=== PATIENT | male | born 1980 | race Caucasian/White ===

== ENCOUNTER 2020-07-13 07:54 | Emergency (ER) | payer BC ==
[2020-07-13] MEDS ORDERED: MANNITOL 20% 500 ML IV SCH (09:00)
--- NOTE | 2020-07-13 09:04 | RAD REPORT ---
EXAM DESCRIPTION: CT - Head Brain Wo Cont - 07/13/2020 8:55 am CLINICAL HISTORY: HEADACHE COMPARISON: No comparisons TECHNIQUE: Axial 5 mm thick images of the head were obtained without IV contrast. All CT scans are performed using dose optimization technique as appropriate and may include automated exposure control or mA/KV adjustment according to patient size. FINDINGS: No intracranial hemorrhage, mass, edema or shift of mid-line structures. No acute infarcti on changes seen. No abnormal extra-axial fluid collections. Ventricles are normal. Mastoid air cells and visualized portions of the paranasal sinuses are clear. No acute bony findings. IMPRESSION: Negative non-contrast CT head examination.
[2020-07-13] MEDS ORDERED: PILOCARPINE 1% OPTH DROPS 15 ML BTL OPTH ONE (09:15)
[2020-07-13] MEDS ORDERED: DORZOLAMIDE 2% OPTH (10 ML) OPTH ONE (09:15)
[2020-07-13] MEDS ORDERED: TIMOLOL MALEATE 0.5% OPTH 5 ML BTL OPTH ONE (09:15)
--- NOTE | 2020-07-13 09:21 | ER ---
Nurse's Notes [facility] Name: Salvatore Izaguirre Age: 40 yrs Sex: Male : 1980 Arrival Date: 07/13/2020 Time: 07:58 Bed 20 Private MD: Blas Gomez R Diagnosis: Acute angle-closure glaucoma, left eye Presentation: 07/13 08:22 Chief complaint: Patient states: L eye pain that began 1.5 weeks ago. Redness began ss yesterday. Also c/o headache that began yesterday. Coronavirus screen: Client denies travel out of the [place] in the last 14 days. Ebola Screen: Patient denies exposure to infectious person. Patient denies travel to an Ebola-affected area in the 21 days before illness onset. Mechanism of Injury: No Mechanism of Injury. The patient denies any loss of vision. Initial Sepsis Screen: Does the patient meet any 2 criteria? No. Patient's initial sepsis screen is negative. Does the patient have a suspected source of infection? No. Patient's initial sepsis screen is negative. Risk Assessment: Do you want to hurt yourself or someone else? Patient reports no desire to harm self or others. Onset of symptoms was July 12, 2020. 08:22 Method Of Arrival: Ambulatory ss 08:22 Acuity: IVIS 2 dm5 Historical: - Allergies: 08:25 IV contrast; ss - Home Meds: 08:25 None [Active]; ss - PMHx: 08:25 borderline HTN; Arthritis; ss - PSHx: 08:25 back surgery; ss - Immunization history:: Adult Immunizations up to date. - Social history:: Smoking status: Patient denies any tobacco usage or history of. Patient/guardian denies using alcohol, street drugs, The patient lives with family. - Family history:: not pertinent. Screenin:01 Abuse screen: Denies threats or abuse. Nutritional screening: No deficits noted. ll1 Tuberculosis screening: No symptoms or risk factors identified. Fall Risk Secondary diagnosis (15 points) impaired vision. IV access (20 points). Ambulatory Aid- Crutches/Cane/Walker (15 pts). Gait- Impaired (20 pts.). Total Tovar Fall Scale indicates High Risk Score (45 or more points). Fall prevention measures have been instituted. Side Rails Up X 2 Frequent Obs/Assessments Occuring As available patient and family educated on Fall Prevention Program and Strategies. Vital Signs: 08:15 BP 153 / 94; Pulse 82; Resp 16; Temp 98.3(O); Pulse Ox 99% on R/A; Weight 104.33 kg; 3 Height 5 ft. 10 in. (177.80 cm); Pain 9/10; 09:30 BP 142 / 93; Pulse 65; ss 09:38 Pain 5/10; ss 10:01 BP 142 / 82; Pulse 63; Resp 16; Pulse Ox 98% on R/A; ll1 08:15 Body Mass Index 33.00 (104.33 kg, 177.80 cm) [facility] ED Course: 07:58 Patient arrived in ED. mr 07:58 Blas Gomez MD is Private Physician. mr 08:10 Ricky Jaimes MD is Attending Physician. [facility] 08:21 Rachel Tee, DIXON is Primary Nurse. 08:23 Triage completed. 08:25 Arm band placed on right wrist. 08:59 initiated a transfer with BRIEN Trejo from the [facility]. 09:00 Inserted saline lock: 18 gauge in right antecubital area, using aseptic technique. [facility] 09:[address] Salvatore Colón the auth specialist retail and promotions coordinator for [facility] with Dr. andi Jaimes for patient transfer consultation. 09:[address] Hou the emergency room doctor retail and promotions coordinator for [facility] with Dr. andi Jaimes for patient transfer consultation. 09:26 administrative approval given by BRIEN Trejo / patient has been accepted to [facility] ER/ Dr. Ann Marie Hou has accepted the patient in transfer/ report to be called through the transfer center at [phone]. 10:01 Patient has correct armband on for positive identification. Bed in low position. Call ll1 light in reach. Side rails up X 1. Pulse ox on. NIBP on. 10:25 No provider procedures requiring assistance completed. Patient transferred, IV remains ss in place. Administered Medications: 09:12 Drug: acetaZOLAMIDE 250 mg Route: PO; ss 10:14 Follow up: Response: No adverse reaction 09:24 Drug: TORadol 30 mg Route: IVP; Site: right antecubital; ss 10:14 Follow up: Response: No adverse reaction; RASS: Alert and Calm (0) ss 09:26 Drug: Mannitol 25% 1 g/kg Route: IV; Rate: calculated rate; Site: right antecubital; ss 10:14 Follow up: Response: No adverse reaction; IV Status: Completed infusion ss 09:30 Not Given (Physician Discretion): Pilocarpine Drops (2 %) 1 drops Ophthalmic once ss 09:33 Drug: Timolol 0.25 % 1 drops Route: Ophthalmic; Site: left eye; ma2 10:14 Follow up: Response: No adverse reaction ss 09:33 Drug: Dorzolamide 2 % 1 drops Route: Ophthalmic; Site: left eye; ma2 10:15 Follow up: Response: No adverse reaction ss Outcome: 09:21 ER care complete, transfer ordered by . ma2 10:25 Patient left the ED. eb 10:25 Transferred by ground EMS to [facility]. 10:25 Condition: good 10:25 Instructed on the need for transfer. Addendum: 07/14/2020 08:22 Addendum: Other Pt is awake, alert and obeys commands. Respirations are even and s s unlabored. Denies fever, feeling ill, fatigue and/or chills. Pt c/o L sided headache that began this morning. L eye irritation that began 2 weeks ago, but became worse this morning. L sclera appears reddened. Pt reports that he noticed his L pupil was non reactive this morning. L pupil is in fact non reactive. Pt reports that his vision is hazy in L eye. Denies dizzines. Abd assessment is within normal limits. Denies N/V/D. Signatures: Medina eBnjamin RN RN dm5 Trinity Mireles Shelby, RN RN Eli Cervantes 3 Ricky Jaimes MD MD ma2 Jessica Dash Lynsay, RN RN ll1 Corrections: (The following items were deleted from the chart) 07/13 08:54 08:22 Acuity: IVIS 3 ss dm5
--- NOTE | 2020-07-13 09:21 | EDPHYS ---
Physician Documentation [facility] Name: Salvatore Izaguirre Age: 40 yrs Sex: Male : 1980 Arrival Date: 07/13/2020 Time: 07:58 Bed 20 Private MD: Blas Gomez R ED Physician Ricky Jaimes HPI: 07/13 09:02 This 40 yrs old Male presents to ER via Ambulatory with complaints of Redness ma2 of Eye, Eye Pain. 09:02 This 40 yrs old Male presents to ER via Ambulatory with complaints of Redness ma2 of Eye, Eye Pain. 09:02 Onset: The symptoms/episode began/occurred gradually, 3 day(s) ago. Duration: the ma2 symptoms are continuous. Associated signs and symptoms: Pertinent negatives: chills, fever, headache, runny nose. Severity of symptoms: At their worst the symptoms were severe in the emergency department the symptoms are unchanged. The patient has not experienced similar symptoms in the past. Historical: - Allergies: 08:25 IV contrast; ss - Home Meds: 08:25 None [Active]; ss - PMHx: 08:25 borderline HTN; Arthritis; ss - PSHx: 08:25 back surgery; ss - Immunization history:: Adult Immunizations up to date. - Social history:: Smoking status: Patient denies any tobacco usage or history of. Patient/guardian denies using alcohol, street drugs, The patient lives with family. - Family history:: not pertinent. ROS: 09:02 Constitutional: Negative for fever, chills, and weight loss. ma2 09:02 All other systems are negative. Exam: 09:02 Visual Acuity: Visual acuity is within normal limits. ma2 09:02 Constitutional: This is a well developed, well nourished patient who is awake, alert, and in no acute distress. Head/Face: Normocephalic, atraumatic. ENT: Nares patent. No nasal discharge, no septal abnormalities noted. Tympanic membranes are normal and external auditory canals are clear. Oropharynx with no redness, swelling, or masses, exudates, or evidence of obstruction, uvula midline. Mucous membranes moist. Neck: Trachea midline, no thyromegaly or masses palpated, and no cervical lymphadenopathy. Supple, full range of motion without nuchal rigidity, or vertebral point tenderness. No Meningismus. Chest/axilla: Normal chest wall appearance and motion. Nontender with no deformity. No lesions are appreciated. Cardiovascular: Regular rate and rhythm with a normal S1 and S2. No gallops, murmurs, or rubs. Normal PMI, no JVD. No pulse deficits. Respiratory: Lungs have equal breath sounds bilaterally, clear to auscultation and percussion. No rales, rhonchi or wheezes noted. No increased work of breathing, no retractions or nasal flaring. Abdomen/GI: Soft, non-tender, with normal bowel sounds. No distension or tympany. No guarding or rebound. No evidence of tenderness throughout. 09:02 Eyes: Periorbital structures: appear normal, Pupils: are fixed and dilated, on left, right pupil is 3 mm round reactive to light , Extraocular movements: intact throughout, Corneas: hazy and injected on left and normal on right , Sclera: no appreciated abnormality, Anterior chamber: Lids and lashes: appear normal, Visual putnam: are intact, Intraocular pressure: right eye = 15mmHg, left eye = 28mmHg. Vital Signs: 08:15 BP 153 / 94; Pulse 82; Resp 16; Temp 98.3(O); Pulse Ox 99% on R/A; Weight 104.33 kg; 3 Height 5 ft. 10 in. (177.80 cm); Pain 9/10; 09:30 BP 142 / 93; Pulse 65; ss 09:38 Pain 5/10; ss 10:01 BP 142 / 82; Pulse 63; Resp 16; Pulse Ox 98% on R/A; ll1 08:15 Body Mass Index 33.00 (104.33 kg, 177.80 cm) 3 MDM: 08:10 Patient medically screened. or2 09:02 Differential diagnosis: Corneal abrasion of Corneal ulcer of Acute glaucoma in ma2 Ultraviolet keratitis in. Data reviewed: vital signs, nurses notes. Counseling: I had a detailed discussion with the patient and/or guardian regarding: the historical points, exam findings, and any diagnostic results supporting the discharge/admit diagnosis, the presence of at least one elevated blood pressure reading (>120/80) during this emergency department visit, the need for outpatient follow up. Response to treatment: the patient's symptoms have markedly improved after treatment. ED course: discussed with hat presser dr. Rai, he advised that his clinic is closed today, he recommends transfer as the laser devise is broken and may take few days to be fixed. . 09:02 ED course: initiated transfer to [facility], for higher level of care, discussed ma2 with dr. Colón hat presser advised to give timolol and dorzolamide and hold off pilocarpine until her evaluate him in the er. I applied timolol and pilocarpine drops to left eye at 0925. He will receive acetazolamide Po and mannitol IV. . 07/13 08:34 Order name: CT Head Brain wo Cont ma2 07/13 09:04 Order name: CT; Complete Time: 09:13 EDMS Administered Medications: 09:12 Drug: acetaZOLAMIDE 250 mg Route: PO; ss 10:14 Follow up: Response: No adverse reaction ss 09:24 Drug: TORadol 30 mg Route: IVP; Site: right antecubital; ss 10:14 Follow up: Response: No adverse reaction; RASS: Alert and Calm (0) ss 09:26 Drug: Mannitol 25% 1 g/kg Route: IV; Rate: calculated rate; Site: right antecubital; ss 10:14 Follow up: Response: No adverse reaction; IV Status: Completed infusion ss 09:30 Not Given (Physician Discretion): Pilocarpine Drops (2 %) 1 drops Ophthalmic once ss 09:33 Drug: Timolol 0.25 % 1 drops Route: Ophthalmic; Site: left eye; ma2 10:14 Follow up: Response: No adverse reaction ss 09:33 Drug: Dorzolamide 2 % 1 drops Route: Ophthalmic; Site: left eye; ma2 10:15 Follow up: Response: No adverse reaction ss Disposition: 07/13/20 09:21 Transfer ordered to [facility]. Diagnosis is Acute angle-closure glaucoma, left eye. - Reason for transfer: Higher level of care. - Accepting physician is Eldon . - Condition is Stable. - Problem is new. - Symptoms are unchanged. Signatures: Dispatcher [employer] EDMS Rachel Tee RN RN ss Ricky Jaimes MD MD ma2 Jessica Dash Corrections: (The following items were deleted from the chart) 09:19 09:02 ED course: I gave the following eye drops to patient in the ER: timolol, ma2 pilocarpine and dorzolamide. he will receive acetazolamide and . ma2 10:25 09:21 07/13/2020 09:21 Transfer ordered to [facility]. eb Diagnosis is Acute angle-closure glaucoma, left eye. Reason for transfer: Higher level of care. Accepting physician is Eldon . Condition is Stable. Problem is new. Symptoms are unchanged. ma2
[2020-07-13] MEDS ORDERED: KETOROLAC 30 MG/ML INJ ONE (09:37)
[2020-07-13] MEDS ORDERED: acetaZOLAMIDE 250 MG TAB PO ONE (10:00)
[2020-07-13 10:30] VITALS: TEMP 98.3
[2020-07-13 10:33] VITALS: BP 142/82; O2SAT 98
== END 2020-07-13 10:25 | disposition short-term general hospital (02) ==
LOC: ER 07:54
DX: H40.212 Acute angle-closure glaucoma, left eye (principal); M19.90 Unspecified osteoarthritis, unspecified site
CPT/HCPCS: 70450; 96365; 96375; 99285